=== PATIENT | male | born 1980 | race Caucasian/White ===

== ENCOUNTER → 2021-07-14 18:29 | Outpatient (CLI) | payer MEDICAID, SELFPAY ==
[2021-07-14 18:30] LABS: Microscopic, Urine URINE MICROSCOPIC (MICROSCOPIC)
[2021-07-14 19:45] LABS: Appearance,Urine CLOUDY (Clear); Bilirubin,Urine Negative (Negative); Blood, Urine Negative (Negative); Color,Urine ORANGE (Yellow); Glucose,Urine (UA) Negative (Negative); Ketones,Urine Negative (Negative); Leukocyte Esterase,Urine Negative (Negative); Nitrate,Urine Negative (Negative); Protein,Urine Negative (Negative); Specific Gravity, Urine >= 1.030 (1.005-1.030); Urobilinogen,Urine 0.2 EU/dl (0.2)
[2021-07-14 20:00] LABS: Bacteria,Urine 4+ /lpf; Squamous Epithelial Cell,Urine Occasional #/hpf (0-5)
[2021-07-15 05:10] LABS: Amphetamine/Metha Screen,Urine Negative ng/ml (<1000); Barbiturates Screen,Urine Negative ng/ml (<200); Benzodiazepines Screen,Urine Negative ng/ml (<200); Cannabinoid Screen,Urine Positive ng/ml (<50); Cocaine Screen,Urine Negative ng/ml (<300); Methadone Screen,Urine Negative ng/ml (<300); Opiate Screen,Urine Negative ng/ml (<300); Phencyclidine Screen,Urine Negative ng/ml (<25)
== END ==
PROVIDERS: Visit Provider Nurse Practitioner Family
DX: Z00.00 Encounter for general adult medical examination without abnormal findings (principal); Z76.89 Persons encountering health services in other specified circumstances
CPT/HCPCS: 80305; 81001; 87086

== ENCOUNTER → 2021-08-17 07:50 | Outpatient (CLI) | payer MEDICAID, SELFPAY ==
--- NOTE | 2021-08-17 07:53 | US_ITS ---
FINAL REPORT CLINICAL HISTORY: elevated liver enzymes-- pt currently on saboxen FINDINGS: Sonographic images of the right upper quadrant were obtained. The pancreas is partially obscured.The liver is normal echogenicity. The portal vein is borderline dilated up to 14 mm with normal directional flow. The gallbladder demonstrates borderline gallbladder wall thickening at 3 mm. There are no gallstones.There is no evidence of biliary ductal dilatation.The common duct measures 2mm. Limited images of the right kidney are unremarkable. IMPRESSION: Borderline dilatation of the portal vein with normal directional flow. Nonspecific gallbladder wall thickening. Reviewed, Interpreted and Dictated by Carlos Jensen III, MD Transcribed by Mikey Quick Authenticated by Carlos Jensen III, MD on 08/17/2021 09:44:07 AM [facility]
== END ==
PROVIDERS: PCP Nurse Practitioner Family; Visit Provider Nurse Practitioner Family
DX: R74.8 Abnormal levels of other serum enzymes (principal)
CPT/HCPCS: 76705